=== PATIENT | male | born 1935 | race Caucasian/White ===

== ENCOUNTER 2018-04-10 05:18 | Inpatient (IN) | payer MEDICARE, OTHER ==
[2018-04-08 14:02] LABS: BASOPHILS % (AUTO) 0.3 % (0-1); EOSINOPHILS % (AUTO) 0.3 % (0-6); LYMPHOCYTES # (AUTO) 0.9 X10'3 (1.1-4.8); LYMPHOCYTES % (AUTO) 12.2 % (21-51); MEAN CORPUSCULAR HEMOGLOBIN 30.5 PG (27.0-31.0); MEAN CORPUSCULAR HGB CONC 33.5 % (33.0-36.5); MEAN PLATELET VOLUME 7.7 FL (7.4-10.4); MONOCYTES # (AUTO) 0.4 X10'3 (0-0.9); MONOCYTES % (AUTO) 5.5 % (2-12); NEUTROPHILS # (AUTO) 6.3 X10'3 (1.8-7.7); NEUTROPHILS % (AUTO) 81.7 % (42-75); PRE OP HEMATOCRIT 42.1 % (42.0-52.0); PRE OP HEMOGLOBIN 14.1 g/dL (14.0-17.9); PRE OP PLATELET COUNT 200 X10'3 (140-440); RED BLOOD COUNT 4.62 X10'6 (4.70-6.10); RED CELL DISTRIBUTION WIDTH 12.3 % (11.5-14.5)
[2018-04-08 14:04] LABS: CLARITY,URINE CLEAR (Clear); COLOR,URINE YELLOW (Yellow); GLUCOSE, URINE NEGATIVE (Neg); KETONES,URINE NEGATIVE (Neg); LEUKOCYTE ESTERASE ,URINE NEGATIVE (Neg); NITRITES, URINE NEGATIVE (Neg); OCCULT BLOOD,URINE SMALL (Neg); PROTEIN,URINE NEGATIVE (Neg); UROBILINOGEN,URINE 0.2 E.U/dL (0.2-1.0)
[2018-04-08 14:08] LABS: UA COLLECTION TYPE CLN CATCH MIDSTREAM
[2018-04-08 14:10] LABS: HEMOGLOBIN A1C 5.4 % (4.5-6.2)
[2018-04-08 14:10] LABS: BACTERIA,URINE NONE SEEN /HPF (Neg); SQUAMOUS EPITHELIAL CELL,UR FEW /LPF (FEW); WBC,URINE 0-4 /HPF (0-4)
[2018-04-08 14:15] LABS: ALBUMIN 3.5 G/DL (3.4-5.0); ALBUMIN/GLOBULIN RATIO 1.1 (1.1-1.5); ALKALINE PHOSPHATASE 130 IU/L (46-116); BLOOD UREA NITROGEN 16 MG/DL (7-18); BUN/CREATININE RATIO 16.2 (5.4-32.0); CALCIUM 8.9 MG/DL (8.5-10.1); CHLORIDE 107 MMOL/L (99-107); CREATININE 0.99 MG/DL (0.60-1.10); PRE OP ALT 19 U/L (30-65); PRE OP ANION GAP 6 (8-16); PRE OP AST 21 U/L (10-37); PRE OP BILIRUB, TOTAL 0.4 MG/DL (0.0-1.0); PRE OP GLUCOSE 103 MG/DL (70-104); PRE OP POTASSIUM 4.1 MMOL/L (3.4-5.1); PRE OP SODIUM 139 MMOL/L (135-145); TOTAL CARBON DIOXIDE 25.8 MMOL/L (24-32); TOTAL PROTEIN 6.8 G/DL (6.4-8.2); eGFR 72 ML/MIN
[2018-04-08 14:35] LABS: ABG BASE EXCESS -1.4 mmol/L (-2.0-3.0); ABG HCO3 21.8 mmol/L (22.0-26.0); ABG OXYGEN SATURATION 94.7 % (95-98); ABG PCO2 (T) 32.8 mmHg (35.0-48.0); ABG PH (T) 7.441 (7.350-7.450); ABG PO2 (T) 72.2 mmHg (83-108); ALLEN'S TEST Positive; FCOHb 1.3 % (0.5-1.5); FMetHb 0.3 % (0.3-1.12); FO2Hb 93.2 % (94-100); TOTAL HEMOGLOBIN 14.7 G/dl (14.0-18.0)
[~2018-04-10] VITALS: Ht 175.3 cm; Wt 78.5 kg
[2018-04-10] VITALS (14 sets, daily range): BP systolic 82–158; BP diastolic 45–95
[~2018-04-10 05:18] MED LIST: ASPI-1265 PO; BIO CLEANSE; HYT1T PO; LACT1CAP65 PO; MELA3TAB PO; METO10TA3 PO; ZOC40T PO; ringers solution, lacted 1,000 ML IV SCH
[2018-04-10] MEDS ORDERED: DOCUMENT DATE & TIME OF BETA-BLOCKER PO ONE (05:30)
[2018-04-10] MEDS ORDERED: mupirocin 2% nasal ointment 1gm UD NS ONE (05:30)
[2018-04-10] MEDS ORDERED: metoprolol tartrate 12.5mg (1/2 tablet) PO ONE (05:30)
[2018-04-10] MEDS ORDERED: famotidine 20mg tablet PO ONE (05:30)
[2018-04-10] MEDS ORDERED: LORazepam 2 mg/ml vial IV PRN (05:30)
[2018-04-10] MEDS ORDERED: dextrose 50%-water 50ml dispensing syringe IV PRN ×2 (05:30→11:50)
[2018-04-10] MEDS ORDERED: VANCOMYCIN INJ 1000 MG in NORMAL SALINE 250ml IV.SOLN IV ONE (05:30)
[2018-04-10] MEDS ORDERED: Cefazolin 2GM/50ML dext iso,osmotic IVPB IV ONE (05:30)
[2018-04-10] MEDS ORDERED: LIDOcaine 1% (10mg/ml) 2ml vial ONE (05:57)
[2018-04-10] MEDS ORDERED: SUFENTANIL CITRATE 50 MCG/ML 2ml ampule IV ONE (07:31)
[2018-04-10] MEDS ORDERED: rocuronium 10mg/ml inj IV ONE ×2 (07:31)
[2018-04-10] MEDS ORDERED: MIDAZolam 1mg/ml 10ml vial ONE (07:31)
[2018-04-10] MEDS ORDERED: propofol inj 20 ML IV ONE (07:32)
[2018-04-10] MEDS ORDERED: sevoflurane 250ml liquid IH ONE (07:38)
[2018-04-10] MEDS ORDERED: INSULIN R 100 UNIT in NS 100ML (1 UNIT/1 ML) BAG IV ONE (07:38)
[2018-04-10] MEDS ORDERED: magnesium sulf 1 GM/2 ML ONE (08:00)
[2018-04-10] MEDS ORDERED: sodium bicarbonate (8.4%) 1 mEq/ml syringe ONE (08:00)
[2018-04-10] MEDS ORDERED: LIDOcaine 2% (20 mg/ml) 5ml cardiac syringe ONE (08:00)
[2018-04-10] MEDS ORDERED: methylPREDNISolone sod succ 1000mg vial ONE (08:00)
[2018-04-10] MEDS ORDERED: aminocaproic acid 250 MG/1 ML inj. ONE (08:00)
[2018-04-10] MEDS ORDERED: phenylephrine 10mg/ml inj. ONE (08:00)
[2018-04-10] MEDS ORDERED: heparin 10,000 units/1 ML INJ ONE (08:00)
[2018-04-10] MEDS ORDERED: calcium chloride 100 MG/1 ML inj IV ONE (08:00)
[2018-04-10] MEDS ORDERED: furosemide 40mg/4ml inj ONE (08:00)
[2018-04-10] MEDS ORDERED: albumin (human) 25% 100 ML IV solution IV ONE (08:00)
[2018-04-10] MEDS ORDERED: heparin 1,000 units/ml 10ml inj ONE (08:00)
[2018-04-10] MEDS ORDERED: potassium acetate 2 mEq/1ml inj. IV ONE (08:00)
[2018-04-10 08:40] LABS: ABG BASE EXCESS -0.5 mmol/L (-2.0-3.0); ABG HCO3 24.4 mmol/L (22.0-26.0); ABG OXYGEN SATURATION 98.8 % (95-98); ABG PH 7.393 (7.350-7.450); ABG PO2 214.5 mmHg (60.0-100.0); CL (ABG) 109 mmol/L (99-107); FCOHb 0.8 % (0.5-1.5); FMetHb 0.1 % (0.3-1.12); FO2Hb 97.9 % (94-100); GLUCOSE (ABG) 99 mg/dl (70-105); IONIZED CA (ABG) 1.15 mmol/L (1.03-1.32); K (ABG) 4.1 mmol/L (3.3-5.1); NA (ABG) 137 mmol/L (135-145); TOTAL HEMOGLOBIN 12.5 G/dl (14.0-18.0)
[2018-04-10] MEDS ORDERED: heparin 10,000 units/1 ML INJ IR ONE (09:01)
[2018-04-10] MEDS ORDERED: papaverine 30 mg/ml 2ml inj. IA ONE (09:02)
[2018-04-10 09:45] LABS: ABG BASE EXCESS -1.1 mmol/L (-2.0-3.0); ABG HCO3 23.4 mmol/L (22.0-26.0); ABG OXYGEN SATURATION 99.1 % (95-98); ABG PCO2 38.1 mmHg (35.0-45.0); ABG PH 7.406 (7.350-7.450); ABG PO2 594.8 mmHg (60.0-100.0); CL (ABG) 106 mmol/L (99-107); FCOHb 0.2 % (0.5-1.5); FMetHb 0.3 % (0.3-1.12); FO2Hb 98.6 % (94-100); GLUCOSE (ABG) 103 mg/dl (70-105); IONIZED CA (ABG) 1.01 mmol/L (1.03-1.32); K (ABG) 5.5 mmol/L (3.3-5.1); NA (ABG) 136 mmol/L (135-145); TOTAL HEMOGLOBIN 10.7 G/dl (14.0-18.0)
[2018-04-10 09:55] LABS: ABG BASE EXCESS VENOUS -2.1 mmol/L; ABG HCO3 VENOUS 23.3 mmol/L; ABG PCO2 VENOUS 42.2 mmHg; ABG PO2 VENOUS 70.9 mmHg; CL (ABG) 106 mmol/L (99-107); FCOHb VENOUS 0.7 %; FHHb VENOUS 7.1 %; FMetHb VENOUS 0.1 %; FO2Hb VENOUS 92.1 %; GLUCOSE (ABG) 103 mg/dl (70-105); IONIZED CA (ABG) 1.06 mmol/L (1.03-1.32); K (ABG) 5.5 mmol/L (3.3-5.1); NA (ABG) 135 mmol/L (135-145); TOTAL HEMOGLOBIN 10.9 G/dl (14.0-18.0)
[2018-04-10 10:15] LABS: ABG BASE EXCESS -0.5 mmol/L (-2.0-3.0); ABG HCO3 24.3 mmol/L (22.0-26.0); ABG OXYGEN SATURATION 99.2 % (95-98); ABG PCO2 40.4 mmHg (35.0-45.0); ABG PH 7.397 (7.350-7.450); ABG PO2 489.5 mmHg (60.0-100.0); CL (ABG) 107 mmol/L (99-107); FCOHb 0.5 % (0.5-1.5); FMetHb 0.3 % (0.3-1.12); FO2Hb 98.4 % (94-100); GLUCOSE (ABG) 121 mg/dl (70-105); IONIZED CA (ABG) 1.07 mmol/L (1.03-1.32); K (ABG) 5.7 mmol/L (3.3-5.1); NA (ABG) 136 mmol/L (135-145); TOTAL HEMOGLOBIN 11.2 G/dl (14.0-18.0)
[2018-04-10 10:50] LABS: ABG HCO3 25.2 mmol/L (22.0-26.0); ABG OXYGEN SATURATION 99.1 % (95-98); ABG PCO2 38.5 mmHg (35.0-45.0); ABG PH 7.433 (7.350-7.450); ABG PO2 385.9 mmHg (60.0-100.0); CL (ABG) 106 mmol/L (99-107); FCOHb 0.5 % (0.5-1.5); FMetHb 0.3 % (0.3-1.12); FO2Hb 98.3 % (94-100); GLUCOSE (ABG) 120 mg/dl (70-105); IONIZED CA (ABG) 1.18 mmol/L (1.03-1.32); K (ABG) 5.7 mmol/L (3.3-5.1); NA (ABG) 136 mmol/L (135-145); TOTAL HEMOGLOBIN 10.9 G/dl (14.0-18.0)
[2018-04-10 11:10] LABS: ABG HCO3 23.5 mmol/L (22.0-26.0); ABG OXYGEN SATURATION 71.1 % (95-98); ABG PCO2 43.3 mmHg (35.0-45.0); ABG PH 7.353 (7.350-7.450); CL (ABG) 105 mmol/L (99-107); FCOHb 1.2 % (0.5-1.5); FMetHb 0.3 % (0.3-1.12); GLUCOSE (ABG) 132 mg/dl (70-105); IONIZED CA (ABG) 1.24 mmol/L (1.03-1.32); K (ABG) 5.2 mmol/L (3.3-5.1); NA (ABG) 138 mmol/L (135-145); TOTAL HEMOGLOBIN 11.6 G/dl (14.0-18.0)
[2018-04-10 11:45] LABS: ACT @ 1.70 U 267 SEC (193-297); ACT @ 2.84 U 403 SEC (260-420); BASELINE ACT 144 SEC (101-148); PATIENT WEIGHT 73.0k KG
[2018-04-10 11:46] LABS: ACTIVATED CLOTTING TIME 130 SEC (101-148)
[2018-04-10] MEDS ORDERED: nitroGLYCERIN-Tridil 50MG/D5W 250 ML IV PRN ×2 (11:48→16:54)
[2018-04-10] MEDS ORDERED: sodium chloride 0.45% 1,000 ML IV SCH (11:48)
[2018-04-10] MEDS ORDERED: niCARDipine/sod cl 20mg/200ml 200 ML IV PRN ×2 (11:48→16:53)
[2018-04-10] MEDS ORDERED: DOPamine 400mg/D5W 250ml 250 ML IV PRN ×2 (11:48→16:43)
[2018-04-10] MEDS ORDERED: morphine 4 MG/ML inj SYRINge IV PRN (11:50)
[2018-04-10] MEDS ORDERED: potassium Cl 20mEq/100mL bag 100 ML IV PRN ×3 (11:50)
[2018-04-10] MEDS ORDERED: magnesium hydroxide 30ml (MOM) UD suspension PO PRN (11:50)
[2018-04-10] MEDS ORDERED: Neutra Phos packet PO PRN (11:50)
[2018-04-10] MEDS ORDERED: metoclopramide 5 mg/ml inj IV PRN (11:50)
[2018-04-10] MEDS ORDERED: sodium phosphate inj. 15 MMOL in dextrose 5%-water 150 ML IV PRN (11:50)
[2018-04-10] MEDS ORDERED: acetaminophen 325mg tablet PO PRN (11:50)
[2018-04-10] MEDS ORDERED: normal saline 250ml IV soln 250 ML IV PRN (11:50)
[2018-04-10] MEDS ORDERED: sodium phosphate inj. 30 MMOL in dextrose 5%-water 250 ML IV PRN (11:50)
[2018-04-10] MEDS ORDERED: insulin regular, human inj. 100 UNITS in normal saline 100ml IV soln 100 ML IV SCH ×2 (11:50)
[2018-04-10] MEDS ORDERED: magnesium 4gm in 100ml NS 100 ML IV PRN (11:50)
[2018-04-10 12:12] LABS: ABG BASE EXCESS -3.9 mmol/L (-2.0-3.0); ABG HCO3 21.1 mmol/L (22.0-26.0); ABG OXYGEN SATURATION 92.9 % (95-98); ABG PCO2 (T) 38.5 mmHg (35.0-48.0); ABG PH (T) 7.357 (7.350-7.450); ABG PO2 (T) 71.5 mmHg (83-108); FCOHb 0.8 % (0.5-1.5); FMetHb 0.3 % (0.3-1.12); FO2Hb 91.9 % (94-100); PEEP 5 cm H2O; RESPIRATORY RATE 12 b/min; TIDAL VOLUME 500 mL; TOTAL HEMOGLOBIN 14.9 G/dl (14.0-18.0)
[2018-04-10 12:19] LABS: BASOPHILS % (AUTO) 0.2 % (0-1); EOSINOPHILS % (AUTO) 0.3 % (0-6); HEMATOCRIT 41.8 % (42.0-52.0); HEMOGLOBIN 14.4 g/dl (14.0-17.9); LYMPHOCYTES # (AUTO) 1.1 X10'3 (1.1-4.8); MEAN CORPUSCULAR HEMOGLOBIN 30.9 PG (27.0-31.0); MEAN CORPUSCULAR HGB CONC 34.4 % (33.0-36.5); MEAN CORPUSCULAR VOLUME 89.7 FL (78-98); MEAN PLATELET VOLUME 7.2 FL (7.4-10.4); MONOCYTES # (AUTO) 0.2 X10'3 (0-0.9); MONOCYTES % (AUTO) 1.5 % (2-12); NEUTROPHILS # (AUTO) 12.4 X10'3 (1.8-7.7); PLATELET COUNT 149 X10'3 (140-440); RED BLOOD COUNT 4.66 X10'6 (4.70-6.10); WHITE BLOOD COUNT 13.7 X10'3 (4.5-11.0)
[2018-04-10] MEDS: albumin (Human) 5% 250ml 250 ML IV PRN ×3 (12:27→14:20)
[2018-04-10 12:30] LABS: INR 1.1 INR; PARTIAL THROMBOPLASTIN TIME 26 SECONDS (22-32); PROTHROMBIN TIME 11.4 SECONDS (9.0-12.0)
[2018-04-10 12:55] LABS: ALANINE AMINOTRANSFERASE 24 U/L (12-78); ALBUMIN 2.9 G/DL (3.4-5.0); ALBUMIN/GLOBULIN RATIO 1.2 (1.1-1.5); ALKALINE PHOSPHATASE 102 IU/L (46-116); ANION GAP 7 (8-16); ASPARTATE AMINO TRANSFERASE 58 U/L (10-37); BILIRUBIN,TOTAL 0.8 MG/DL (0.1-1.0); BLOOD UREA NITROGEN 15 MG/DL (7-18); BUN/CREATININE RATIO 14.4 (5.4-32.0); CALCIUM 10.4 MG/DL (8.5-10.1); CHLORIDE 107 MMOL/L (99-107); CREATININE 1.04 MG/DL (0.60-1.10); GLUCOSE 158 MG/DL (70-104); MAGNESIUM 2.8 MG/DL (1.5-2.4); PHOSPHORUS 3.2 MG/DL (2.3-4.5); POTASSIUM 4.5 MMOL/L (3.5-5.1); SODIUM 139 MMOL/L (135-145); TOTAL CARBON DIOXIDE 25.4 MMOL/L (24-32); TOTAL PROTEIN 5.4 G/DL (6.4-8.2); eGFR 68 ML/MIN
[2018-04-10] MEDS ORDERED: NORepinephrine 8mg/ 250ml NS 250 ML IV ONE (14:13)
[2018-04-10] MEDS ORDERED: NORepinephrine 8mg/ 250ml NS 250 ML IV SCH (14:15)
[2018-04-10] MEDS: ceFAZolin 1GM/D5W- ADD-VANTAGE 50 ML IV SCH (16:04)
[2018-04-10] MEDS: morphine 4 MG/ML inj SYRINge IV PRN ×3 (16:34→22:29)
[2018-04-10 17:21] LABS: ABG BASE EXCESS -7.2 mmol/L (-2.0-3.0); ABG HCO3 17.1 mmol/L (22.0-26.0); ABG OXYGEN SATURATION 95.5 % (95-98); ABG PCO2 (T) 31.1 mmHg (35.0-48.0); ABG PH (T) 7.357 (7.350-7.450); ABG PO2 (T) 86.7 mmHg (83-108); FCOHb 0.5 % (0.5-1.5); PEEP 5 cm H2O; TOTAL HEMOGLOBIN 13.9 G/dl (14.0-18.0)
[2018-04-10 17:30] LABS: ABG BASE EXCESS -6.8 mmol/L (-2.0-3.0); ABG HCO3 17.7 mmol/L (22.0-26.0); ABG OXYGEN SATURATION 95.7 % (95-98); ABG PCO2 (T) 32.5 mmHg (35.0-48.0); ABG PH (T) 7.353 (7.350-7.450); ABG PO2 (T) 88.1 mmHg (83-108); FCOHb 0.2 % (0.5-1.5); FMetHb 0.3 % (0.3-1.12); FO2Hb 95.2 % (94-100); PEEP 5 cm H2O; TOTAL HEMOGLOBIN 13.7 G/dl (14.0-18.0)
[2018-04-10 17:48] LABS: BASOPHILS % (AUTO) 0 % (0-1); EOSINOPHILS % (AUTO) 0 % (0-6); HEMATOCRIT 39.2 % (42.0-52.0); HEMOGLOBIN 13.3 g/dl (14.0-17.9); LYMPHOCYTES # (AUTO) 0.3 X10'3 (1.1-4.8); LYMPHOCYTES % (AUTO) 1.7 % (21-51); MEAN CORPUSCULAR HEMOGLOBIN 31.1 PG (27.0-31.0); MEAN CORPUSCULAR HGB CONC 34.1 % (33.0-36.5); MEAN CORPUSCULAR VOLUME 91.3 FL (78-98); MEAN PLATELET VOLUME 8.2 FL (7.4-10.4); MONOCYTES # (AUTO) 0.4 X10'3 (0-0.9); MONOCYTES % (AUTO) 2.3 % (2-12); NEUTROPHILS # (AUTO) 18.1 X10'3 (1.8-7.7); PLATELET COUNT 162 X10'3 (140-440); RED BLOOD COUNT 4.29 X10'6 (4.70-6.10); WHITE BLOOD COUNT 18.9 X10'3 (4.5-11.0)
[2018-04-10] MEDS: insulin Lispro (HumaLOG) vial - multi-dose SQ SCH ×2 (18:00→19:35)
[2018-04-10 18:19] LABS: ALBUMIN 3.7 G/DL (3.4-5.0); ANION GAP 14 (8-16); BLOOD UREA NITROGEN 17 MG/DL (7-18); BUN/CREATININE RATIO 11.3 (5.4-32.0); CALCIUM 8.9 MG/DL (8.5-10.1); CHLORIDE 108 MMOL/L (99-107); GLUCOSE 238 MG/DL (70-104); POTASSIUM 3.9 MMOL/L (3.5-5.1); SODIUM 142 MMOL/L (135-145); eGFR 45 ML/MIN
[2018-04-10] MEDS: insulin regular, human 100 UNIT in normal saline 100ml IV soln 99 ML IV SCH ×2 (19:56)
[2018-04-10] MEDS: docusate sod 100mg capsule PO SCH (20:00)
[2018-04-10] MEDS: Terazosin 1mg capsule PO SCH (20:03)
[2018-04-10] MEDS: mupirocin 2% nasal ointment 1gm UD NS SCH (20:04)
[2018-04-10] MEDS: vancomycin/NS 1 GM ADD-VANTAGE 250 ML IV SCH (20:04)
[2018-04-11] VITALS (23 sets, daily range): BP systolic 80–134; BP diastolic 45–71
[2018-04-11] MEDS: ceFAZolin 1GM/D5W- ADD-VANTAGE 50 ML IV SCH ×3 (00:10→16:59)
[2018-04-11] MEDS: morphine 4 MG/ML inj SYRINge IV PRN ×2 (00:11→06:18)
[2018-04-11 03:59] LABS: ALANINE AMINOTRANSFERASE 41 U/L (12-78); ALBUMIN 3.4 G/DL (3.4-5.0); ALBUMIN/GLOBULIN RATIO 1.5 (1.1-1.5); ALKALINE PHOSPHATASE 77 IU/L (46-116); ANION GAP 9 (8-16); ASPARTATE AMINO TRANSFERASE 65 U/L (10-37); BILIRUBIN,TOTAL 0.6 MG/DL (0.1-1.0); BLOOD UREA NITROGEN 22 MG/DL (7-18); BUN/CREATININE RATIO 15.7 (5.4-32.0); CALCIUM 8.7 MG/DL (8.5-10.1); CHLORIDE 111 MMOL/L (99-107); GLUCOSE 148 MG/DL (70-104); PHOSPHORUS 2.5 MG/DL (2.3-4.5); SODIUM 143 MMOL/L (135-145); TOTAL CARBON DIOXIDE 23.5 MMOL/L (24-32); TOTAL PROTEIN 5.6 G/DL (6.4-8.2); eGFR 49 ML/MIN
[2018-04-11 04:44] LABS: POTASSIUM 3.9 MMOL/L (3.5-5.1)
[2018-04-11] MEDS: insulin regular, human 100 UNIT in normal saline 100ml IV soln 99 ML IV SCH ×2 (05:30)
[2018-04-11 05:40] LABS: BASOPHILS % (AUTO) 0 % (0-1); EOSINOPHILS % (AUTO) 0 % (0-6); HEMATOCRIT 34.8 % (42.0-52.0); HEMOGLOBIN 12.2 g/dl (14.0-17.9); LYMPHOCYTES # (AUTO) 0.3 X10'3 (1.1-4.8); LYMPHOCYTES % (AUTO) 1.3 % (21-51); MEAN CORPUSCULAR HEMOGLOBIN 31.4 PG (27.0-31.0); MEAN CORPUSCULAR VOLUME 89.6 FL (78-98); MEAN PLATELET VOLUME 7.7 FL (7.4-10.4); MONOCYTES # (AUTO) 0.8 X10'3 (0-0.9); MONOCYTES % (AUTO) 3.9 % (2-12); NEUTROPHILS # (AUTO) 19.3 X10'3 (1.8-7.7); NEUTROPHILS % (AUTO) 94.8 % (42-75); PLATELET COUNT 136 X10'3 (140-440); RED BLOOD COUNT 3.89 X10'6 (4.70-6.10); RED CELL DISTRIBUTION WIDTH 13.3 % (11.5-14.5); WHITE BLOOD COUNT 20.4 X10'3 (4.5-11.0)
[2018-04-11 05:49] LABS: PARTIAL THROMBOPLASTIN TIME 27 SECONDS (22-32); PROTHROMBIN TIME 10.8 SECONDS (9.0-12.0)
[2018-04-11] MEDS: docusate sod 100mg capsule PO SCH ×2 (07:21→20:58)
[2018-04-11] MEDS: pantoprazole 40mg Tablet.DR PO SCH (07:21)
[2018-04-11] MEDS: HYDROcodone/acetaminophen 10/325mg tab PO PRN ×2 (07:22→20:59)
[2018-04-11] MEDS: atorvastatin 10mg tablet PO SCH (07:23)
[2018-04-11] MEDS: metoprolol tartrate 12.5mg (1/2 tablet) PO SCH ×2 (07:23→20:00)
[2018-04-11] MEDS ORDERED: aspirin 325mg tablet, delayed-release (Ecotrin) PO SCH (08:00)
[2018-04-11] MEDS: mupirocin 2% nasal ointment 1gm UD NS SCH ×2 (08:03→20:58)
[2018-04-11] MEDS: vancomycin/NS 1 GM ADD-VANTAGE 250 ML IV SCH ×2 (08:11→20:58)
[2018-04-11] MEDS: magnesium 1gm/100ml D5W IVPB 100 ML IV PRN ×2 (08:11→12:16)
[2018-04-11] MEDS: insulin Lispro (HumaLOG) vial - multi-dose SQ SCH ×3 (09:00→19:00)
[2018-04-11] MEDS: ondansetron/PF 4mg/2ml inj IV PRN (13:28)
[2018-04-11 13:51] LABS: ABG PO2 39.2 mmHg (60.0-100.0)
[2018-04-11 17:49] LABS: ALANINE AMINOTRANSFERASE 34 U/L (12-78); ALBUMIN 3.1 G/DL (3.4-5.0); ALBUMIN/GLOBULIN RATIO 1.3 (1.1-1.5); ALKALINE PHOSPHATASE 71 IU/L (46-116); ANION GAP 7 (8-16); ASPARTATE AMINO TRANSFERASE 39 U/L (10-37); BILIRUBIN,TOTAL 0.4 MG/DL (0.1-1.0); BLOOD UREA NITROGEN 31 MG/DL (7-18); BUN/CREATININE RATIO 18.9 (5.4-32.0); CALCIUM 8.1 MG/DL (8.5-10.1); CHLORIDE 106 MMOL/L (99-107); CREATININE 1.64 MG/DL (0.60-1.10); GLUCOSE 157 MG/DL (70-104); MAGNESIUM 2.7 MG/DL (1.5-2.4); SODIUM 137 MMOL/L (135-145); TOTAL CARBON DIOXIDE 23.7 MMOL/L (24-32); TOTAL PROTEIN 5.5 G/DL (6.4-8.2); eGFR 40 ML/MIN
[2018-04-11] MEDS: Terazosin 1mg capsule PO SCH (20:59)
[2018-04-12] VITALS (17 sets, daily range): BP systolic 97–121; BP diastolic 43–65
[2018-04-12] MEDS: ceFAZolin 1GM/D5W- ADD-VANTAGE 50 ML IV SCH (00:12)
[2018-04-12] MEDS: HYDROcodone/acetaminophen 10/325mg tab PO PRN ×3 (01:00→23:36)
[2018-04-12] MEDS: insulin regular, human 100 UNIT in normal saline 100ml IV soln 99 ML IV SCH ×2 (04:25)
[2018-04-12 05:54] LABS: BASOPHILS % (AUTO) 0 % (0-1); EOSINOPHILS % (AUTO) 0 % (0-6); HEMATOCRIT 30.6 % (42.0-52.0); HEMOGLOBIN 10.6 g/dl (14.0-17.9); LYMPHOCYTES # (AUTO) 0.7 X10'3 (1.1-4.8); MEAN CORPUSCULAR HEMOGLOBIN 31.5 PG (27.0-31.0); MEAN CORPUSCULAR HGB CONC 34.7 % (33.0-36.5); MEAN CORPUSCULAR VOLUME 90.8 FL (78-98); MEAN PLATELET VOLUME 7.9 FL (7.4-10.4); MONOCYTES # (AUTO) 0.8 X10'3 (0-0.9); MONOCYTES % (AUTO) 4.8 % (2-12); NEUTROPHILS # (AUTO) 15.7 X10'3 (1.8-7.7); NEUTROPHILS % (AUTO) 91.2 % (42-75); PLATELET COUNT 120 X10'3 (140-440); RED BLOOD COUNT 3.37 X10'6 (4.70-6.10); RED CELL DISTRIBUTION WIDTH 13.3 % (11.5-14.5); WHITE BLOOD COUNT 17.2 X10'3 (4.5-11.0)
[2018-04-12 06:26] LABS: ALBUMIN 2.9 G/DL (3.4-5.0); ANION GAP 7 (8-16); BLOOD UREA NITROGEN 38 MG/DL (7-18); BUN/CREATININE RATIO 21.7 (5.4-32.0); CALCIUM 7.9 MG/DL (8.5-10.1); CHLORIDE 104 MMOL/L (99-107); CREATININE 1.75 MG/DL (0.60-1.10); GLUCOSE 134 MG/DL (70-104); MAGNESIUM 2.7 MG/DL (1.5-2.4); SODIUM 137 MMOL/L (135-145); TOTAL CARBON DIOXIDE 25.9 MMOL/L (24-32); eGFR 38 ML/MIN
[2018-04-12] MEDS ORDERED: furosemide 20 MG/2 ML vial IV ONE (06:35)
[2018-04-12] MEDS ORDERED: potassium Cl 40MEQ/NS 500ml 500 ML IV PRN ×2 (07:15)
[2018-04-12] MEDS ORDERED: magnesium Cl slow-release 64mg tablet PO PRN (07:15)
[2018-04-12] MEDS ORDERED: magnesium 1gm/100ml D5W IVPB 100 ML IV PRN (07:15)
[2018-04-12] MEDS ORDERED: magnesium 4gm in 100ml NS 100 ML IV PRN (07:15)
[2018-04-12] MEDS ORDERED: potassium Cl 20 mEq SR tablet PO PRN ×2 (07:15)
[2018-04-12] MEDS: potassium Cl 20 mEq SR tablet PO SCH ×2 (07:44→20:00)
[2018-04-12] MEDS: magnesium Cl slow-release 64mg tablet PO SCH ×2 (07:45→20:00)
[2018-04-12] MEDS: metoprolol tartrate 12.5mg (1/2 tablet) PO SCH ×2 (08:00→20:35)
[2018-04-12] MEDS: K and/or MAG REPLACEMENT MC SCH (08:00)
[2018-04-12] MEDS: mupirocin 2% nasal ointment 1gm UD NS SCH (08:00)
[2018-04-12] MEDS: pantoprazole 40mg Tablet.DR PO SCH (08:19)
[2018-04-12] MEDS: aspirin 81mg tab.chew PO SCH (08:19)
[2018-04-12] MEDS: atorvastatin 10mg tablet PO SCH (08:19)
[2018-04-12] MEDS: lactose-reduced food (Ensure High Protein) 237ml bottle PO SCH (17:00)
[2018-04-12] MEDS: Terazosin 1mg capsule PO SCH (21:00)
[2018-04-13 02:00] VITALS: BP 95/49
[2018-04-13 06:00] VITALS: BP 100/52
[2018-04-13 06:37] LABS: BASOPHILS % (AUTO) 0 % (0-1); EOSINOPHILS % (AUTO) 0 % (0-6); HEMATOCRIT 28.7 % (42.0-52.0); HEMOGLOBIN 9.8 g/dl (14.0-17.9); LYMPHOCYTES # (AUTO) 0.6 X10'3 (1.1-4.8); LYMPHOCYTES % (AUTO) 6.7 % (21-51); MEAN CORPUSCULAR HGB CONC 34.2 % (33.0-36.5); MEAN CORPUSCULAR VOLUME 90.7 FL (78-98); MEAN PLATELET VOLUME 7.8 FL (7.4-10.4); MONOCYTES # (AUTO) 0.6 X10'3 (0-0.9); MONOCYTES % (AUTO) 6.8 % (2-12); NEUTROPHILS # (AUTO) 7.4 X10'3 (1.8-7.7); NEUTROPHILS % (AUTO) 86.5 % (42-75); PLATELET COUNT 104 X10'3 (140-440); RED BLOOD COUNT 3.16 X10'6 (4.70-6.10); RED CELL DISTRIBUTION WIDTH 13.2 % (11.5-14.5); WHITE BLOOD COUNT 8.5 X10'3 (4.5-11.0)
[2018-04-13 06:54] LABS: ALBUMIN 2.7 G/DL (3.4-5.0); ANION GAP 5 (8-16); BLOOD UREA NITROGEN 46 MG/DL (7-18); BUN/CREATININE RATIO 33.6 (5.4-32.0); CHLORIDE 105 MMOL/L (99-107); CREATININE 1.37 MG/DL (0.60-1.10); GLUCOSE 116 MG/DL (70-104); MAGNESIUM 2.3 MG/DL (1.5-2.4); SODIUM 137 MMOL/L (135-145); TOTAL CARBON DIOXIDE 27.1 MMOL/L (24-32); eGFR 50 ML/MIN
[2018-04-13] MEDS: ondansetron/PF 4mg/2ml inj IV PRN (07:30)
[2018-04-13] MEDS: K and/or MAG REPLACEMENT MC SCH (08:00)
[2018-04-13] MEDS: potassium Cl 20 mEq SR tablet PO SCH ×2 (08:21→20:05)
[2018-04-13] MEDS: atorvastatin 10mg tablet PO SCH (08:21)
[2018-04-13] MEDS: pantoprazole 40mg Tablet.DR PO SCH (08:21)
[2018-04-13] MEDS: metoprolol tartrate 12.5mg (1/2 tablet) PO SCH ×2 (08:22→20:05)
[2018-04-13] MEDS: aspirin 81mg tab.chew PO SCH (08:22)
[2018-04-13] MEDS: magnesium Cl slow-release 64mg tablet PO SCH ×2 (08:22→20:05)
[2018-04-13 11:00] VITALS: BP 89/56
[2018-04-13] MEDS ORDERED: magnesium hydroxide 30ml (MOM) UD suspension PO ONE (11:30)
[2018-04-13 15:00] VITALS: BP 104/53
[2018-04-13] MEDS: lactose-reduced food (Ensure High Protein) 237ml bottle PO SCH (17:00)
[2018-04-13 18:00] VITALS: BP 106/52
[2018-04-13] MEDS: HYDROcodone/acetaminophen 10/325mg tab PO PRN (20:07)
[2018-04-13] MEDS: Terazosin 1mg capsule PO SCH (21:00)
[2018-04-13 22:00] VITALS: BP 97/54
[2018-04-14] VITALS (13 sets, daily range): BP systolic 90–128; BP diastolic 44–79
[2018-04-14] MEDS: HYDROcodone/acetaminophen 10/325mg tab PO PRN ×2 (03:09→20:56)
[2018-04-14 06:01] LABS: BASOPHILS % (AUTO) 0 % (0-1); EOSINOPHILS # (AUTO) 0.1 X10'3 (0-0.9); EOSINOPHILS % (AUTO) 1.1 % (0-6); HEMATOCRIT 28.2 % (42.0-52.0); HEMOGLOBIN 9.8 g/dl (14.0-17.9); LYMPHOCYTES # (AUTO) 0.7 X10'3 (1.1-4.8); LYMPHOCYTES % (AUTO) 10.4 % (21-51); MEAN CORPUSCULAR HEMOGLOBIN 31.7 PG (27.0-31.0); MEAN CORPUSCULAR HGB CONC 34.8 % (33.0-36.5); MEAN CORPUSCULAR VOLUME 90.9 FL (78-98); MEAN PLATELET VOLUME 7.3 FL (7.4-10.4); MONOCYTES # (AUTO) 0.4 X10'3 (0-0.9); MONOCYTES % (AUTO) 6.9 % (2-12); NEUTROPHILS # (AUTO) 5.1 X10'3 (1.8-7.7); NEUTROPHILS % (AUTO) 81.6 % (42-75); PLATELET COUNT 114 X10'3 (140-440); RED CELL DISTRIBUTION WIDTH 13.2 % (11.5-14.5); WHITE BLOOD COUNT 6.3 X10'3 (4.5-11.0)
[2018-04-14 06:30] LABS: ALBUMIN 2.6 G/DL (3.4-5.0); ANION GAP 3 (8-16); BLOOD UREA NITROGEN 36 MG/DL (7-18); BUN/CREATININE RATIO 30.8 (5.4-32.0); CALCIUM 8.1 MG/DL (8.5-10.1); CHLORIDE 107 MMOL/L (99-107); CREATININE 1.17 MG/DL (0.60-1.10); GLUCOSE 113 MG/DL (70-104); MAGNESIUM 2.5 MG/DL (1.5-2.4); POTASSIUM 4.7 MMOL/L (3.5-5.1); SODIUM 138 MMOL/L (135-145); TOTAL CARBON DIOXIDE 27.9 MMOL/L (24-32); eGFR 60 ML/MIN
[2018-04-14] MEDS ORDERED: amiodarone 150mg/dext, iso-os 100 ML IV ONE (06:50)
[2018-04-14] MEDS: aspirin 81mg tab.chew PO SCH (07:25)
[2018-04-14] MEDS: atorvastatin 10mg tablet PO SCH (07:25)
[2018-04-14] MEDS: pantoprazole 40mg Tablet.DR PO SCH (07:26)
[2018-04-14] MEDS: metoprolol tartrate 12.5mg (1/2 tablet) PO SCH ×2 (07:39→20:48)
[2018-04-14] MEDS: amiodarone/D5 360MG/200ML BAG 200 ML IV SCH ×3 (07:54→19:08)
[2018-04-14] MEDS: potassium Cl 20 mEq SR tablet PO SCH ×2 (08:00→19:00)
[2018-04-14] MEDS: magnesium Cl slow-release 64mg tablet PO SCH ×2 (08:00→19:00)
[2018-04-14] MEDS: K and/or MAG REPLACEMENT MC SCH (08:00)
[2018-04-14] MEDS: lactose-reduced food (Ensure High Protein) 237ml bottle PO SCH (17:00)
[2018-04-14] MEDS: Terazosin 1mg capsule PO SCH (20:48)
[2018-04-15] VITALS (10 sets, daily range): BP systolic 95–115; BP diastolic 48–54
[2018-04-15] MEDS: amiodarone/D5 360MG/200ML BAG 200 ML IV SCH (01:02)
[2018-04-15 05:44] LABS: ALBUMIN 2.4 G/DL (3.4-5.0); ANION GAP 3 (8-16); BLOOD UREA NITROGEN 31 MG/DL (7-18); BUN/CREATININE RATIO 27.2 (5.4-32.0); CALCIUM 8.1 MG/DL (8.5-10.1); CHLORIDE 105 MMOL/L (99-107); CREATININE 1.14 MG/DL (0.60-1.10); GLUCOSE 110 MG/DL (70-104); MAGNESIUM 2.1 MG/DL (1.5-2.4); POTASSIUM 4.5 MMOL/L (3.5-5.1); SODIUM 138 MMOL/L (135-145); TOTAL CARBON DIOXIDE 29.7 MMOL/L (24-32); eGFR 61 ML/MIN
[2018-04-15 06:00] LABS: BASOPHILS % (AUTO) 0.1 % (0-1); EOSINOPHILS # (AUTO) 0.2 X10'3 (0-0.9); EOSINOPHILS % (AUTO) 2.4 % (0-6); HEMATOCRIT 27.4 % (42.0-52.0); HEMOGLOBIN 9.4 g/dl (14.0-17.9); LYMPHOCYTES # (AUTO) 0.6 X10'3 (1.1-4.8); LYMPHOCYTES % (AUTO) 7.5 % (21-51); MEAN CORPUSCULAR HEMOGLOBIN 31.7 PG (27.0-31.0); MEAN CORPUSCULAR HGB CONC 34.4 % (33.0-36.5); MEAN PLATELET VOLUME 7.6 FL (7.4-10.4); MONOCYTES # (AUTO) 0.5 X10'3 (0-0.9); MONOCYTES % (AUTO) 6.1 % (2-12); NEUTROPHILS # (AUTO) 6.6 X10'3 (1.8-7.7); NEUTROPHILS % (AUTO) 83.9 % (42-75); PLATELET COUNT 129 X10'3 (140-440); RED BLOOD COUNT 2.98 X10'6 (4.70-6.10); RED CELL DISTRIBUTION WIDTH 13.4 % (11.5-14.5); WHITE BLOOD COUNT 7.9 X10'3 (4.5-11.0)
[2018-04-15] MEDS ORDERED: furosemide 40mg/4ml inj IV ONE (06:50)
[2018-04-15] MEDS ORDERED: magnesium citrate 296ml oral solution PO ONE (07:25)
[2018-04-15] MEDS ORDERED: bisacodyl 10mg suppository rectal RC PRN (07:25)
[2018-04-15] MEDS: pantoprazole 40mg Tablet.DR PO SCH (07:25)
[2018-04-15] MEDS: atorvastatin 10mg tablet PO SCH (07:26)
[2018-04-15] MEDS: metoprolol tartrate 12.5mg (1/2 tablet) PO SCH ×2 (07:27→20:09)
[2018-04-15] MEDS: amiodarone 200mg tablet PO SCH ×2 (07:35→20:09)
[2018-04-15] MEDS: potassium Cl 20 mEq SR tablet PO SCH ×2 (08:00→18:38)
[2018-04-15] MEDS: K and/or MAG REPLACEMENT MC SCH (08:00)
[2018-04-15] MEDS: magnesium Cl slow-release 64mg tablet PO SCH ×2 (08:00→18:38)
[2018-04-15] MEDS: aspirin 81mg tab.chew PO SCH (10:15)
[2018-04-15] MEDS: lactose-reduced food (Ensure High Protein) 237ml bottle PO SCH (17:00)
[2018-04-15] MEDS: HYDROcodone/acetaminophen 10/325mg tab PO PRN (20:09)
[2018-04-15] MEDS: Terazosin 1mg capsule PO SCH (20:09)
[2018-04-16 02:57] VITALS: BP 104/51
[2018-04-16 05:31] LABS: ALBUMIN 2.4 G/DL (3.4-5.0); ANION GAP 6 (8-16); BLOOD UREA NITROGEN 27 MG/DL (7-18); BUN/CREATININE RATIO 22.9 (5.4-32.0); CALCIUM 8.6 MG/DL (8.5-10.1); CHLORIDE 105 MMOL/L (99-107); CREATININE 1.18 MG/DL (0.60-1.10); GLUCOSE 107 MG/DL (70-104); MAGNESIUM 1.9 MG/DL (1.5-2.4); POTASSIUM 4.5 MMOL/L (3.5-5.1); SODIUM 141 MMOL/L (135-145); TOTAL CARBON DIOXIDE 30.4 MMOL/L (24-32); eGFR 59 ML/MIN
[2018-04-16] MEDS: ondansetron/PF 4mg/2ml inj IV PRN (06:58)
[2018-04-16 07:00] VITALS: BP 121/56
[2018-04-16] MEDS: magnesium Cl slow-release 64mg tablet PO SCH (07:30)
[2018-04-16] MEDS: aspirin 81mg tab.chew PO SCH (07:31)
[2018-04-16] MEDS: pantoprazole 40mg Tablet.DR PO SCH (07:31)
[2018-04-16] MEDS: amiodarone 200mg tablet PO SCH (07:31)
[2018-04-16] MEDS: atorvastatin 10mg tablet PO SCH (07:31)
[2018-04-16] MEDS: metoprolol tartrate 12.5mg (1/2 tablet) PO SCH (07:34)
[2018-04-16] MEDS: K and/or MAG REPLACEMENT MC SCH (08:00)
[2018-04-16] MEDS: potassium Cl 20 mEq SR tablet PO SCH (08:00)
[2018-04-16] MEDS ORDERED: METO25TA6 PO (09:39)
[2018-04-16] MEDS ORDERED: HYDR-3972 PO (09:39)
[2018-04-16] MEDS ORDERED: AMIO200T40 PO (09:39)
[2018-04-16 11:00] VITALS: BP 97/60
== END 2018-04-16 11:38 | disposition home health service (06) | DRG 236 ==
LOC: PAS IN 05:18 → EDSTATUS 08:30 → CICU 2S 11:53 → PCU 3S 04-12 13:19
PROVIDERS: ADMIT Thoracic Surgery (Cardiothoracic Vascular Surgery); ATTEND Thoracic Surgery (Cardiothoracic Vascular Surgery)
PROC: 021209W Bypass Coronary Artery, Three Arteries from Aorta with Autologous Venous Tissue, Open Approach (ICD-10-PCS; 2018-04-10)
PROC: 06BQ4ZZ Excision of Left Saphenous Vein, Percutaneous Endoscopic Approach (ICD-10-PCS; 2018-04-10)
PROC: 07B90ZX Excision of Left Internal Mammary Lymphatic, Open Approach, Diagnostic (ICD-10-PCS; 2018-04-10)
PROC: 5A1221Z Performance of Cardiac Output, Continuous (ICD-10-PCS; 2018-04-10)
PROC: B24BZZ4 Ultrasonography of Heart with Aorta, Transesophageal (ICD-10-PCS; 2018-04-10)
PROC: 05HM33Z Insertion of Infusion Device into Right Internal Jugular Vein, Percutaneous Approach (ICD-10-PCS; 2018-04-10)
PROC: B543ZZA Ultrasonography of Right Jugular Veins, Guidance (ICD-10-PCS; 2018-04-10)
PROC: 02100Z9 Bypass Coronary Artery, One Artery from Left Internal Mammary, Open Approach (ICD-10-PCS; principal; 2018-04-10 07:38)
DX: I25.110 Atherosclerotic heart disease of native coronary artery with unstable angina pectoris (principal); I48.92 Unspecified atrial flutter; E78.5 Hyperlipidemia, unspecified; I10 Essential (primary) hypertension; I48.91 Unspecified atrial fibrillation; K59.00 Constipation, unspecified; M19.90 Unspecified osteoarthritis, unspecified site; K59.8 Other specified functional intestinal disorders; N40.0 Benign prostatic hyperplasia without lower urinary tract symptoms; Z98.61 Coronary angioplasty status; Z90.49 Acquired absence of other specified parts of digestive tract; Z79.899 Other long term (current) drug therapy; Z79.82 Long term (current) use of aspirin; Z87.891 Personal history of nicotine dependence; Z82.49 Family history of ischemic heart disease and other diseases of the circulatory system
CPT/HCPCS: 0232T; 93312; 93325; 36415; 36600; 71045; 71046; 80048; 80053; 81001; 82330; 82435; 82803; 82947; 82948; 83036; 83735; 84100; 84132; 84295; 85018; 85025; 85347; 85384; 85610; 85730; 86885; 86900; 86901; 86920; 87070; 88305; 93005; 93880; 93971; 94002; 94010; 94667; 94668; 94760; 97110; 97116; 97162; 97530; A4344; A6213; A6255; A6257; A6258; A6402; A6449; A7000; A7048; C1751; J0282; J0690; J1644; J1815; J1940; J2001; J2060; J2150; J2250; J2270; J2370; J2405; J2440; J2704; J2930; J3370; J3475; J3480; J3490; J7030; J7120; P9045; P9047